=== PATIENT | female | born 2000 | race Caucasian/White ===

== ENCOUNTER 2022-04-01 13:25 | Emergency (ER) | payer SELFPAY ==
[2022-04-01 13:42] VITALS: RESP 18; TEMP 98.7; BMI 18.6
[2022-04-01] MEDS ORDERED: ACETAMINOPHEN 1000 MG/100 ML BAG IVPB ONE (14:14)
[2022-04-01] MEDS ORDERED: ACETAMINOPHEN INJECTION 100 ML IVPB ONE (15:04)
[2022-04-01 15:39] LABS: BASO % 0.2 % (0-2.0); EOS % 3.2 % (0-4.5); HEMATOCRIT 36.2 % (32.4-45.2); HEMOGLOBIN 11.5 GM/dL (10.7-15.3); MCHC 31.8 g/dl (32.0-36.0); MEAN CELL VOLUME 87.8 fl (80-96); MEAN PLT VOLUME 7.9 fl (7.5-11.1); NEUT % 72.6 % (42.8-82.8); PLATELET COUNT 272 10^3/uL (134-434); RBC 4.12 M/mm3 (3.60-5.2); RDW 14.4 % (11.6-15.6); WHITE BLOOD COUNT 6.5 K/mm3 (4.0-10.0)
[2022-04-01 16:16] LABS: CALCIUM 9.1 mg/dL (8.5-10.1)
[2022-04-01 16:17] LABS: ALBUMIN 3.8 g/dl (3.4-5.0); BLOOD UREA NITROGEN 9.3 mg/dL (7-18)
[2022-04-01 16:20] LABS: CREATININE 0.5 mg/dL (0.55-1.3)
[2022-04-01 16:21] LABS: BILIRUBIN,TOTAL 0.5 mg/dL (0.2-1)
[2022-04-01] MEDS ORDERED: morphine CARPU-JECT 4 MG/1 ML DISP.SYRIN IVPUSH ONE (20:41)
[2022-04-01 20:45] VITALS: BP 102/49; PULSE 67
[2022-04-01] MEDS ORDERED: morphine SULFATE 4 MG/ML VIAL ONE (20:45)
[2022-04-01] MEDS ORDERED: morphine CARPU-JECT 2 MG/1 ML DISP.SYRIN IVPUSH ONE (20:49)
[2022-04-01] MEDS ORDERED: SODIUM CHLORIDE 0.9% 500 ML INFUS.BAG IV ONE (20:49)
[2022-04-01 22:55] LABS: URINE APPEARANCE CLEAR; URINE BILIRUBIN NEGATIVE (NEGATIVE); URINE COLOR YELLOW; URINE GLUCOSE (UA) NEGATIVE (NEGATIVE); URINE KETONE NEGATIVE (NEGATIVE); URINE LEUK ESTERASE NEGATIVE (NEGATIVE); URINE NITRITE NEGATIVE (NEGATIVE); URINE PROTEIN NEGATIVE (NEGATIVE); URINE UROBILINOGEN 0.2 mg/dL (0.2-1.0)
== END 2022-04-01 23:13 | disposition home or self-care (01) ==
LOC: JER 13:25
PROC: 3E0333Z Introduction of Anti-inflammatory into Peripheral Vein, Percutaneous Approach (ICD-10-PCS; principal; 2022-04-01)
PROC: 3E033NZ Introduction of Analgesics, Hypnotics, Sedatives into Peripheral Vein, Percutaneous Approach (ICD-10-PCS; 2022-04-01)
DX: R10.12 Left upper quadrant pain (principal)
CPT/HCPCS: 0241U-QW; 36415; 74177-TC; 76705-TC; 76775-TC; 76830-TC; 80053; 81003; 83690; 84703; 85025; 87086; 87110; 87491; 87591; 99285-25; Q9967

== ENCOUNTER 2024-09-02 22:21 | Inpatient (IN) | payer OTHER ==
[2024-09-02] MEDS ORDERED: LACTATED RINGERS SOLUTION 1000 ML INFUS.BAG IV ONE (22:43)
[2024-09-02] MEDS: LACTATED RINGERS SOLUTION 1,000 ML IV ONE (22:50)
[2024-09-02] MEDS: LACTATED RINGERS SOLUTION 1,000 ML IV SCH (23:50)
[2024-09-03 03:12] LABS: EOSINOPHILS # 0.14 x10^3/uL (0.04-0.36)
[2024-09-03 03:30] LABS: CHLORIDE 110 mmol/L (98-107); POTASSIUM 3.8 mmol/L (3.5-5.1); SODIUM 141 mmol/L (136-145)
[2024-09-03 03:32] LABS: CALCIUM 9.6 mg/dL (8.5-10.1)
[2024-09-03 03:33] LABS: ANION GAP 10 mmol/L (4-13); BLOOD UREA NITROGEN 11.2 mg/dL (7-18); CO2 21 mmol/L (21-32); GLUCOSE,RANDOM 86 mg/dL (74-106)
[2024-09-03 03:36] LABS: CREATININE 0.4 mg/dL (0.55-1.3)
[2024-09-03 04:03] LABS: INR 0.91 (0.83-1.09); PROTHROMBIN TIME (PATIENT) 9.9 SEC (9.7-13.0)
[2024-09-03 04:05] LABS: ACTIVATED PTT 28.6 SECONDS (25.2-36.5)
[2024-09-03 04:12] LABS: COCAINE, UR NEGATIVE (NEGATIVE); METHADONE, UR NEGATIVE (NEGATIVE); PHENCYCLIDINE,URINE NEGATIVE (NEGATIVE); URINE BARBITURATES NEGATIVE (NEGATIVE); URINE BENZODIAZEPINES NEGATIVE (NEGATIVE)
[2024-09-03 04:20] LABS: ABSOLUTE IMMATURE GRANULOCYTES 0.06 x10^3/uL (0.0-0.031); BASOPHILS # 0.04 x10^3/uL (0.01-0.08); EOSINOPHIL % 1.5 % (0.7-5.8); HEMATOCRIT 39.6 % (34.1-44.9); HEMOGLOBIN 13.1 g/dL (11.2-15.7); MCHC 33.1 g/dl (32.2-35.5); MEAN CELL VOLUME 95.9 fl (79.4-94.8); MEAN PLT VOLUME 11.2 fl (9.4-12.3); MONOCYTE # 0.62 x10^3/uL (0.24-0.86); MONOCYTE % 6.6 % (4.7-12.5); PLATELET COUNT 207 x10^3/uL (182-369); RDW 13.1 % (12.1-16.5)
[2024-09-03 04:46] LABS: OPIATES, URI NEGATIVE (NEGATIVE); URINE AMPHETAMINES NEGATIVE (NEGATIVE)
[2024-09-03] MEDS ORDERED: OXYTOCIN 30 UNITS in 0.9% NS 30 UNIT/500 ML INFUS.BAG IVPB ONE (09:55)
[2024-09-03] MEDS: OXYTOCIN 30 UNITS in 0.9% NS 30 UNIT/500 ML INFUS.BAG IVPB SCH (10:05)
[2024-09-03] MEDS: ELECTROLYTE-148 SOLN 500 ML IV ONE (14:40)
[2024-09-03] MEDS: CITRIC ACID/SODIUM CITRATE 30 ML UNIT-DOSE CUP PO ONE (15:00)
[2024-09-03] MEDS: ELECTROLYTE-148 SOLN 1,000 ML IV SCH (15:45)
[2024-09-03] MEDS ORDERED: ONDANSETRON 4 MG/2 ML VIAL ONE ×2 (15:47→19:41)
[2024-09-03] MEDS ORDERED: morphine SULFATE/PF 1 MG/2 ML (2cc Syringe - QUVA) ONE (15:47)
[2024-09-03] MEDS ORDERED: ceFAZolin SODIUM 1 GM VIAL ONE (15:47)
[2024-09-03] MEDS ORDERED: BUPIVACAINE HCL/PF 0.5% (5MG/ML) 10 ML VIAL ONE (15:48)
[2024-09-03] MEDS ORDERED: FENTANYL CITRATE/PF 50 MCG/ML VIAL ONE (17:39)
[2024-09-03] MEDS: OXYTOCIN 20 UNITS in 0.9% NS 20 UNIT/1,000 ML INFUS.BAG IV SCH (19:00)
[2024-09-03 19:05] LABS: CORD BASE EXCESS -2.1 mmol/L (0-2); CORD HCO3 23.8 mmHg (20-29); CORD PCO2 44.9 mmHg (30-78); CORD pH 7.343 (7.14-7.44)
[2024-09-03] MEDS ORDERED: OXYTOCIN 20 UNITS in 0.9% NS 20 UNIT/1,000 ML INFUS.BAG IV ONE (19:13)
[2024-09-03] MEDS: ONDANSETRON 4 MG/2 ML VIAL IVPUSH PRN (19:40)
[2024-09-03] MEDS ORDERED: IBUPROFEN (CALDOLOR) 800 MG/200 ML PREMIX BAGS IVPB ONE (19:45)
[2024-09-03] MEDS: IBUPROFEN 800 MG/8 ML IJ IVPB PRN (20:00)
[2024-09-04 07:25] LABS: ABSOLUTE IMMATURE GRANULOCYTES 0.08 x10^3/uL (0.0-0.031); BASOPHILS # 0.04 x10^3/uL (0.01-0.08); EOSINOPHIL % 0.3 % (0.7-5.8); EOSINOPHILS # 0.04 x10^3/uL (0.04-0.36); HEMATOCRIT 32.9 % (34.1-44.9); HEMOGLOBIN 10.6 g/dL (11.2-15.7); MCHC 32.2 g/dl (32.2-35.5); MEAN CELL VOLUME 98.2 fl (79.4-94.8); MEAN PLT VOLUME 10.8 fl (9.4-12.3); MONOCYTE # 0.72 x10^3/uL (0.24-0.86); MONOCYTE % 5.3 % (4.7-12.5); PLATELET COUNT 166 x10^3/uL (182-369)
[2024-09-04] MEDS ORDERED: oxyCODONE HCL 5 MG TABLET PO PRN (07:41)
[2024-09-04] MEDS: DIPHTH,PERTUSS(ACELL),TET 0.5 ML DISP.SYRIN IM ONE (11:00)
[2024-09-04] MEDS: IBUPROFEN 600 MG TABLET (FP) PO PRN (12:04)
[2024-09-04] MEDS: SIMETHICONE 80 MG TAB.CHEW (FP) PO PRN (18:31)
[2024-09-04] MEDS ORDERED: BISACODYL 10 MG SUPP.RECT RC PRN (19:41)
[2024-09-04] MEDS: ACETAMINOPHEN 325 MG TABLET (FP) PO PRN (22:39)
[2024-09-05 10:42] VITALS: RESP 18
[2024-09-06 07:45] LABS: ABSOLUTE IMMATURE GRANULOCYTES 0.06 x10^3/uL (0.0-0.031); BASOPHILS # 0.03 x10^3/uL (0.01-0.08); EOSINOPHIL % 1.8 % (0.7-5.8); EOSINOPHILS # 0.14 x10^3/uL (0.04-0.36); HEMATOCRIT 32.8 % (34.1-44.9); HEMOGLOBIN 10.4 g/dL (11.2-15.7); MCHC 31.7 g/dl (32.2-35.5); MEAN CELL VOLUME 99.7 fl (79.4-94.8); MEAN PLT VOLUME 10.7 fl (9.4-12.3); MONOCYTE # 0.46 x10^3/uL (0.24-0.86); MONOCYTE % 5.8 % (4.7-12.5); PLATELET COUNT 201 x10^3/uL (182-369); RDW 13.2 % (12.1-16.5)
[2024-09-06 12:30] VITALS: BP 91/56; PULSE 70; TEMP 97.7
== END 2024-09-06 13:50 | disposition home or self-care (01) | DRG 540 ==
LOC: JDEL 22:21 → JLDR 09-03 02:30 → J3W 09-03 21:04
PROVIDERS: ADMIT Obstetrics & Gynecology; ATTEND Obstetrics & Gynecology
PROC: 10D00Z1 Extraction of Products of Conception, Low, Open Approach (ICD-10-PCS; principal; 2024-09-03)
DX: O76 Abnormality in fetal heart rate and rhythm complicating labor and delivery (principal); O61.9 Failed induction of labor, unspecified; Z3A.38 38 weeks gestation of pregnancy; Z37.0 Single live birth
CPT/HCPCS: 36415; 36600; 80048; 80307; 82803; 85025; 85610; 85730; 86780; 86850; 86900; 86901; 88307-TC; 90715; 94010

== ENCOUNTER 2024-09-07 20:53 | Emergency (ER) | payer OTHER ==
[2024-09-07 21:03] VITALS: TEMP 98.2; BMI 86.9
[2024-09-07] MEDS ORDERED: ACETAMINOPHEN INJECTION 100 ML ONE (22:10)
[2024-09-07] MEDS: ACETAMINOPHEN 1000 MG/100 ML BAG IVPB ONE (22:18)
[2024-09-07] MEDS: SODIUM CHLORIDE 0.9% 500 ML INFUS.BAG IV ONE (22:18)
[2024-09-07 22:36] LABS: ABSOLUTE IMMATURE GRANULOCYTES 0.12 x10^3/uL (0.0-0.031); BASOPHILS # 0.02 x10^3/uL (0.01-0.08); EOSINOPHIL % 2.4 % (0.7-5.8); EOSINOPHILS # 0.21 x10^3/uL (0.04-0.36); HEMATOCRIT 34.9 % (34.1-44.9); HEMOGLOBIN 11.1 g/dL (11.2-15.7); MCHC 31.8 g/dl (32.2-35.5); MEAN CELL VOLUME 99.4 fl (79.4-94.8); MEAN PLT VOLUME 10.3 fl (9.4-12.3); MONOCYTE # 0.51 x10^3/uL (0.24-0.86); MONOCYTE % 5.8 % (4.7-12.5); PLATELET COUNT 287 x10^3/uL (182-369); RDW 12.9 % (12.1-16.5)
[2024-09-07 22:57] LABS: EPI CELLS 16 /uL (0-25.1); HYALINE CASTS 0 /uL (0-3.1); PH,URINE 6.5 (5.0-8.0); URINE APPEARANCE CLEAR; URINE BACTERIA 398 /uL (0-1359); URINE BILIRUBIN NEGATIVE (NEGATIVE); URINE COLOR YELLOW; URINE GLUCOSE (UA) NEGATIVE (NEGATIVE); URINE KETONE NEGATIVE (NEGATIVE); URINE LEUK ESTERASE 3+ (NEGATIVE); URINE NITRITE NEGATIVE (NEGATIVE); URINE PROTEIN NEGATIVE (NEGATIVE); URINE RBC 9 /uL (0-23.9); URINE UROBILINOGEN 0.2 mg/dL (0.2-1.0); URINE WBC 194 /uL (0-25.8)
[2024-09-07 22:57] LABS: POTASSIUM 3.9 mmol/L (3.5-5.1)
[2024-09-07 22:59] LABS: BLOOD UREA NITROGEN 16.6 mg/dL (7-18); CALCIUM 10.4 mg/dL (8.5-10.1)
[2024-09-07 23:02] LABS: CREATININE 0.5 mg/dL (0.55-1.3)
[2024-09-07 23:04] LABS: BILIRUBIN,TOTAL 0.4 mg/dL (0.2-1); TOT PROT 6.9 g/dl (6.4-8.2)
[2024-09-07] MEDS ORDERED: VANCOMYCIN 1 GM PREMIX (F) 1 GM/200 ML BAG ONE (23:43)
[2024-09-07] MEDS ORDERED: PIPERACILLIN/TAZOB 4.5 GM 4.5 GM/100 ML BAG IVPB ONE (23:49)
[2024-09-07 23:51] LABS: HCV DIAGNOSTIC IN-HOUSE W/RFLX NON-REACTIVE (NONREACTIVE)
[2024-09-07 23:52] LABS: HIV INTERPRETATION NEGATIVE (NEGATIVE)
[2024-09-08] MEDS: PIPERACILLIN/TAZOB 4.5 GM 4.5 GM in DEXTROSE 5%-WATER 100 ML IVPB ONE (00:37)
[2024-09-08] MEDS ORDERED: VANCOMYCIN 1 GM PREMIX (F) 1 GM/200 ML BAG ONE (01:18)
[2024-09-08 01:19] VITALS: BP 99/58; PULSE 64; RESP 18
[2024-09-08] MEDS ORDERED: AMOX TR/POT CLAV 875MG/125MG TABLETS (FP) ONE (01:22)
[2024-09-08] MEDS: AMOX TR/POT CLAV 875MG/125MG TABLETS (FP) PO ONE (01:23)
== END 2024-09-08 01:30 | disposition home or self-care (01) ==
LOC: JER 20:53
PROC: 3E033NZ Introduction of Analgesics, Hypnotics, Sedatives into Peripheral Vein, Percutaneous Approach (ICD-10-PCS; 2024-09-07)
PROC: 3E03329 Introduction of Other Anti-infective into Peripheral Vein, Percutaneous Approach (ICD-10-PCS; principal; 2024-09-08)
DX: O90.0 Disruption of cesarean delivery wound (principal)
CPT/HCPCS: 36415; 74177-TC; 80053; 81003; 83605; 85025; 86140; 86803; 87389; 99285-25; Q9967